=== PATIENT | male | born 1975 | race Caucasian/White ===

== ENCOUNTER 2022-06-09 21:00 | Inpatient (IN) | payer BC ==
[~2022-06-09] VITALS: Ht 180.3 cm; Wt 102.5 kg
[2022-06-09 20:45] VITALS: BP 107/80
--- NOTE | 2022-06-09 22:10 | NUR ---
RECEIVED PT VIA GURNEY FROM [facility]. TRANSFERRED TO BED WITH 2 PT ASSIST. AWAKE, ALERT AND VERBALLY RESPONSIVE. AT BEDSIDE. RIGHT LEG DRESSING INTACT, CLEAN AND DRY. 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 BAILEY ON FRIDAY. SKIN ASSESSMENT PERFORMED. PLACED ICE ON HIS RIGHT LEG. NOTED SWELLING ABOVE THE KNEE. WARM TO TOUCH AND HAS SOME BRUISES AROUND THE SURGICAL AREA. VSS. ROUTINE ADMISSION DONE. ORIENTED PT TO ROOM. CALL LIGHT WITHIN REACH. LEFT BED IN LOWEST POSITION. PLAN OF CARE INITIATED. ALL NEEDS ATTENDED. SAFETY PRECAUTIONS MAINTAINED.
[2022-06-09] MEDS ORDERED: OXYCODONE HCL 5 MG TABLET PO PRN (22:15)
[2022-06-09] MEDS ORDERED: MAGNESIUM HYDROXIDE 30 ML LIQUID UDC PO PRN (22:15)
[2022-06-09] MEDS ORDERED: diphenhydrAMINE 25 MG CAP PO PRN (22:15)
[2022-06-09] MEDS ORDERED: BISACODYL 10 MG SUPP.RECT RC PRN (22:15)
[2022-06-09] MEDS ORDERED: REMEDY ESSENTIAL ZINC PASTE 113 GM TOP PRN (22:15)
[2022-06-09] MEDS: OXYCODONE HCL 5 MG TABLET PO PRN (23:36)
[2022-06-10 04:00] VITALS: BP 124/75
[2022-06-10 07:47] VITALS: BP 109/69
[2022-06-10] MEDS: SENNOSIDES 1 TABLET PO SCH ×2 (08:09→16:59)
[2022-06-10] MEDS: OXYCODONE HCL 5 MG TABLET PO PRN ×7 (08:09→20:16)
[2022-06-10] MEDS: ASPIRIN 325 MG TABLET PO SCH (08:09)
[2022-06-10] MEDS: DOCUSATE SODIUM 100 MG CAPSULE PO SCH ×2 (08:09→20:16)
--- NOTE | 2022-06-10 08:56 | NUR ---
0730-Rec'd patient in bed, awake, A/Ox4, able to communicate his needs and follow directions, no physical or respiratory distress noted at this time. Encouraged to use call light for help when needed. Will monitor and follow up according plan of care. 0812-Patient c/o pain to RT lower extremity/Knee, medicated PRN with Oxyir as ordered by MD, based on pain level needs.
--- NOTE | 2022-06-10 09:41 | NUR ---
0900-Scheduled medication administered as ordered. No ASE noted. Fresh ice water pitcher provided., Patient OOB with therapist, ambulating ad rona in [facility]. therapy fairly.
--- NOTE | 2022-06-10 11:05 | NUR ---
0809-Patient requested pain medication, pain assessment done and patient stated pain level to be at 7/10, upon giving him the two Oxyir 10mg as ordered by MD and based on patient's pain level, patient declined to take two tablets of Oxyir, instead he said he will do just fine with one tablet, which is 5mg only. Patient's swishes and choices were respected. Administered only one table of Oxyir 5mg and the other tablet was returned to [facility] with a witness. By the time the Oxyir 5mg tablet was again rescanned it was already 0812am.
--- NOTE | 2022-06-10 11:53 | NUR ---
Oxyir 5mg tablet returned to the [facility], a receipt was printed and tablet wrapped in the receipt. Spoke to Kevin pharmacist regarding above mention Oxyir issue; informed Eduardo (pharmacist) that now every time I logged into [facility] it gives me a message that partial dose needs waste documentation; made it clear to Eduardo nothing was wasted, "5mg table of Oxyir was returned to the bin attached to the [employer], it was witness as well" Obtained orders from Dr. Gee to discontinue Oxyir 10mg and 15 mg PRN. Per patient's request as he claims, 10mg and 15mg "makes him dizzy" order carried out.
[2022-06-10 13:42] LABS: HEMATOCRIT 35.9 % (36.7-47.1); MEAN CORPUSCULAR HEMOGLOBIN 28.2 uug (23.8-33.4); MEAN CORPUSCULAR VOLUME 85.8 fL (73.0-96.2); PLATELET COUNT (AUTO) 223 K/uL (152-348)
[2022-06-10] MEDS ORDERED: FAMO-132 PO (13:58)
[2022-06-10] MEDS ORDERED: ASPI-612 PO (13:58)
[2022-06-10] MEDS ORDERED: OXYC5TAB3 PO (13:58)
[2022-06-10] MEDS ORDERED: BISA10SU61 RC (13:58)
[2022-06-10] MEDS ORDERED: DOCU100C36 PO (13:58)
[2022-06-10] MEDS ORDERED: OXYC15TA2 PO (13:58)
[2022-06-10] MEDS ORDERED: OXYC10TA49 PO (13:58)
[2022-06-10] MEDS ORDERED: SENN-18 PO (13:58)
--- NOTE | 2022-06-10 14:08 | NUR ---
WOUND CARE CONSULT: PT PRESENTS WITH KNEE DRESSING WHICH IS DRY AND INTACT. DEFER TO ORTHO SURGEON. WILL SEE PRN.
[2022-06-10 14:28] LABS: POTASSIUM 3.5 mmol/L (3.5-5.1)
--- NOTE | 2022-06-10 14:38 | NUR ---
1:00PM-PATIENT WAS SEEN BY Dr. SHI, (PATIENT'S AT BEDSIDE), Dr SHI REMOVED RT KNEE DRESSING AND EXAMINED IT. MD ORDERED CBC, BMP STAT. PEPCID 40MG QD. INSTRUCTED ME TO REWRAP THE RT KNEE WITH LIGHT DRESSING. ORDERS NOTED AND CARRIED OUT. PICTURE OF AFFECTED AREA, RT KNEE TAKEN AND FILE IN THE PATIENT'S CHART.
--- NOTE | 2022-06-10 14:49 | NUR ---
2:39PM-MERRITT RHODES, CAME UPSTAIRS TO INFORMED ME SHE HAD PAGED CHLOE AND LEFT A MESSAGE REGARDING NARCOTIC SITUATION.
--- NOTE | 2022-06-10 15:29 | NUR ---
1:40pm-Lynda SUTHERLAND (PHARMACIST) CAME UP TO THE UNIT, WE BOTH ATTEMPTED TO CORRECT NARCOTIC (OXYIR) DISCREPANCY & UNABLE TO SOLVE IT, PER ENA, "I DO NOT KNOW HOW TO GET RID OF THE MESSAGE PROMPTING" 2:32PM-LEFT A MESSAGE FOR HS, CHLOE TO COME UP TO THE FLOOR AND HELP OUT SOLVE THE ISSUE & AWAITING. 3:00PM-RETAIL DEPARTMENT MANAGER AND CHARGE NURSE ARE INFORMED OF NARCOTIC SITUATION
--- NOTE | 2022-06-10 15:31 | NUR ---
LAB RESULTS FOR CBC/BMP DONE STAT (TODAY)WERE RELAYED TO Dr. SHI, PER NO NEW ORDERS AT THIS TIME AND TO CONTINUE WITH TREATMENT AND MONITORING RT KNEE SURGICAL SITE.
[2022-06-10 16:28] VITALS: BP 131/72
--- NOTE | 2022-06-10 18:51 | NUR ---
PATIENT ABLE TO USE CMP MACHINE TO RT EXTREMITY/KNEE @ 5-35 DEGRES, BRICE. WELL. ICE PACKS APPLIED TO RT KNEE AND MEDICATED PATIENT FOR PAIN PRN AND EFFECTIVE. ALL NEEDS ATTENDED WELL AND MET.
--- NOTE | 2022-06-10 20:00 | NUR ---
Temperature 100.0 at this time. Patient/ refused tylenol at this time stating that she'll give sponge bath later. Will monitor.
[2022-06-10 20:24] VITALS: BP 117/74
--- NOTE | 2022-06-10 21:00 | NUR ---
Rechecked temperature 100.6, encouraged increased oral liquid at this time.
--- NOTE | 2022-06-10 21:40 | NUR ---
Sponge bath given by inside room, tolerated well. Temperature down to 99.4. Ice machine started at this time.
[2022-06-10] MEDS: ACETAMINOPHEN 325 MG TABLET PO PRN (22:41)
[2022-06-11] MEDS: OXYCODONE HCL 5 MG TABLET PO PRN ×4 (02:52→22:10)
[2022-06-11 04:00] VITALS: BP 127/72
[2022-06-11] MEDS: FAMOTIDINE 20 MG TABLET PO SCH (06:36)
[2022-06-11 07:15] LABS: HEMATOCRIT 36.6 % (36.7-47.1); MEAN CORPUSCULAR HEMOGLOBIN 28.5 uug (23.8-33.4); MEAN CORPUSCULAR VOLUME 85.9 fL (73.0-96.2); PLATELET COUNT (AUTO) 237 K/uL (152-348)
[2022-06-11 07:19] LABS: BILIRUBIN,TOTAL 1.2 mg/dL (0.2-1.0); MAGNESIUM 2.4 mg/dL (1.8-2.4); PHOSPHOROUS 4.5 mg/dL (2.5-4.9); POTASSIUM 3.5 mmol/L (3.5-5.1)
[2022-06-11 07:50] VITALS: BP 139/81
[2022-06-11 08:29] LABS: THYROID STIMULATING HORMONE 1.755 mIU/mL (0.358-3.740)
[2022-06-11] MEDS: ASPIRIN 325 MG TABLET PO SCH (08:31)
[2022-06-11] MEDS: SENNOSIDES 1 TABLET PO SCH ×2 (08:31→16:17)
[2022-06-11] MEDS: DOCUSATE SODIUM 100 MG CAPSULE PO SCH ×2 (08:31→20:55)
[2022-06-11 09:15] LABS: *BLOOD, URINE NEGATIVE (NEGATIVE); *CLARITY,URINE CLEAR (CLEAR); *COLOR,URINE YELLOW (YELLOW); *KETONES,URINE NEGATIVE (NEGATIVE); LEUKOCYTE ESTERASE ,URINE NEGATIVE (NEGATIVE); NITRITE, URINE NEGATIVE (NEGATIVE); PH,URINE 5.5 (5.0-8.0); UGLUCOSE NEGATIVE (NEGATIVE)
--- NOTE | 2022-06-11 09:29 | NUR ---
0710-PATIENT IN BED, NO C/O PAIN AT THIS TIME. RT KNEE IN CORRECT ALIGNMENT WITH CLEAN DD IN PLACE. PATIENT WITH NO C/O PAIN AT THIS TIME. FRESH ICE WATER PITCHER PROVIDED. NOTED PATIENT WITH DARK COLOR URINE, DENIES ANY BLADDER DISCOMFORT; SPOKE TO PATIENT'S AND STATED PATIENT WAS HAVING TEMPERATURE LAST NIGHT REQUESTED FOR A CXR, UA. ORDERS OBTAINED FROM PCP COVERING AND CARRIED OUT. 0900-SCHEDULED MEDICATION ADMINISTERED ORDERED; ORAL FLUIDS ENCOURAGED BRICE AND TAKEN WELL.
[2022-06-11 09:30] LABS: *BILIRUBIN,URIN 1+ (NEGATIVE)
[2022-06-11] MEDS: ACETAMINOPHEN 325 MG TABLET PO PRN (12:48)
[2022-06-11 16:02] VITALS: BP 125/70
[2022-06-11] MEDS: LACTULOSE 20 G/30 ML LIQUID UDC PO SCH (16:17)
--- NOTE | 2022-06-11 17:29 | NUR ---
0949-Patient ambulating in the hallway with therapist, patient suddenly became diaphoretic/sweating/pale, patient was assisted to sit in a w/c. VS assessed and as follows: BP142/75, HR108, T99.5, R18, HL=602, oxygen 98%. Patient was assisted back to his room and bed; cooling measures applied, ice water offered and taken well. Notified Dr. Munoz about above patient's condition and gave following orders: CxR and UA, orders carried out. 11:30-CxR and UA results relayed to , also informed Dr. Munoz that patient states he has not had a BM since 06/06/22, MD ordered lactulose 20gm BID x3 days. 12:46-Temperature 100, medicated patient PRN with Tylenol for low grade fever as ordered. MD gave new orders at this time to do blood culture X2, and lactic acid.
[2022-06-11 20:43] VITALS: BP 125/75
[2022-06-12] MEDS: ACETAMINOPHEN 325 MG TABLET PO PRN (04:15)
[2022-06-12 04:29] VITALS: BP 118/62
--- NOTE | 2022-06-12 04:45 | NUR ---
AAOx4 Ambulates with walker with supervision. All needs attended. Patient been spiking temperature on and off. Temp 99.4 at beginning of shift. Fluids encouraged. in with patient at that time. Will monitor patient's temperature. Right knee swollen and reddenned. Dressing changed. Temp 100.2 @ 0400. Tylenol given. Refused ice packs. He says its too cold. Told patient to drink a lot of fluids. Patient compliant. Will monitor patient's temp. Blood cultures pending. Voiding well.
[2022-06-12] MEDS: FAMOTIDINE 20 MG TABLET PO SCH (06:20)
[2022-06-12 07:34] VITALS: BP 121/73
[2022-06-12] MEDS: ASPIRIN 325 MG TABLET PO SCH (09:23)
[2022-06-12] MEDS: LACTULOSE 20 G/30 ML LIQUID UDC PO SCH ×2 (09:23→17:17)
[2022-06-12] MEDS: SENNOSIDES 1 TABLET PO SCH ×2 (09:23→17:17)
[2022-06-12] MEDS: DOCUSATE SODIUM 100 MG CAPSULE PO SCH ×2 (09:23→21:37)
[2022-06-12] MEDS: OXYCODONE HCL 5 MG TABLET PO PRN ×2 (09:26→14:09)
--- NOTE | 2022-06-12 12:47 | NUR ---
INDIVIDUALIZED PLAN OF CARE
--- NOTE | 2022-06-12 13:03 | NUR ---
INTERDISCIPLINARY TEAM CONFERENCE
[2022-06-12 16:00] VITALS: BP 130/73
[2022-06-12] MEDS: GLUCERNA SHAKE 237 ML CAN PO SCH (17:32)
[2022-06-12 20:00] VITALS: BP 129/69
--- NOTE | 2022-06-12 23:00 | NUR ---
1920- The patient is AOx4 Ambulates with walker with supervision. All needs attended. Patient has a dressing on right knee. Fluids encouraged. in the room with patient. The patient has no high temperature. The patient has no IV access. Call light within reach, bed alarm on, two side rails up, wheels locked. The patient has no sob. Will continue to monitor throughout the shift. 2200- Changed right knee dressing. Dressing clean, dry and intact. Will continue to monitor throughout the shift. 0100- The patient request for an extra blanket. Item is given to the patient. The patient has no complains of pain or sob. Will continue to monitor throughout the shift.
[2022-06-13 04:00] VITALS: BP 135/61
[2022-06-13] MEDS: FAMOTIDINE 20 MG TABLET PO SCH (06:34)
[2022-06-13] MEDS: OXYCODONE HCL 5 MG TABLET PO PRN ×3 (07:59→17:28)
[2022-06-13] MEDS: GLUCERNA SHAKE 237 ML CAN PO SCH ×2 (08:00→17:53)
[2022-06-13 08:01] VITALS: BP 120/71
[2022-06-13] MEDS: DOCUSATE SODIUM 100 MG CAPSULE PO SCH ×2 (09:17→21:43)
[2022-06-13] MEDS: LACTULOSE 20 G/30 ML LIQUID UDC PO SCH ×2 (09:17→17:00)
[2022-06-13] MEDS: ASPIRIN 325 MG TABLET PO SCH (09:17)
[2022-06-13] MEDS: SENNOSIDES 1 TABLET PO SCH ×2 (09:17→17:53)
[2022-06-13 15:54] VITALS: BP 132/69
--- NOTE | 2022-06-13 19:16 | NUR ---
RECEIVED REPORT FROM HOWARD ADAM RN. PATIENT IS ALERT & ORIENTED X4, AND SPEAKS [place]. VITAL SIGNS STABLE. PATIENT TOLERATES PO MEDICATIONS AND DIET WELL. PATIENT PARTICIPATES WITH PHYSICAL AND OCCUPATIONAL THERAPY SCHEDULED. PATIENT HAD COMPLAINT OF PAIN. RN PROVIDED MEDICATIONS ORDERED BY MD. PATIENT EXPRESSES RELIEF. RIGHT KNEE DRESSING DRY, CLEAN, & INTACT. RN CONFIRMED WITH PATIENT THAT HE WILL BE GOING TO A DOCTOR'S APPOINTMENT AT 1500. PATIENT CONFIRMS: "YES." RN GAVE REPORT TO EMT [facility] TEAM. PATIENT LEFT AT 1537PM WITH [facility] IN STABLE CONDITION. PATIENT RETURNS AT 1714PM. PATIENT HAD ONE LARGE BOWEL MOVEMENT AND EXPRESSED RELIEF. FALL PRECAUTIONS IN PLACE. ALL NEEDS MET AT THIS TIME. NO ACUTE DISTRESS. ENDORSED CARE TO HOWARD ADAM RN, FOR CONTINUATION OF CARE.
[2022-06-13 20:00] VITALS: BP 117/64
--- NOTE | 2022-06-13 23:00 | NUR ---
1925- The patient is AOx4 Ambulates with walker with supervision. All needs attended. Patient has a dressing on right knee that is clean, dry, and intact. Fluids encouraged. in the room with patient. The patient has no high temperature. The patient has no IV access. Call light within reach, bed alarm on, two side rails up, wheels locked. The patient has no sob or complains of pain. Will continue to monitor throughout the shift. 2100- Dressing of the right knee clean, dry and intact. Will continue to monitor throughout the shift. 0400- The patient request for extra pillows. Items are given to the patient. The patient has no complains of pain or sob. Will continue to monitor throughout the shift.
[2022-06-14 04:00] VITALS: BP 115/56
[2022-06-14] MEDS: FAMOTIDINE 20 MG TABLET PO SCH (06:23)
[2022-06-14 07:59] VITALS: BP 124/68
[2022-06-14] MEDS: ASPIRIN 325 MG TABLET PO SCH (08:54)
[2022-06-14] MEDS: SENNOSIDES 1 TABLET PO SCH ×2 (08:54→18:00)
[2022-06-14] MEDS: OXYCODONE HCL 5 MG TABLET PO PRN (08:55)
[2022-06-14] MEDS: DOCUSATE SODIUM 100 MG CAPSULE PO SCH ×2 (08:55→20:38)
[2022-06-14] MEDS: LACTULOSE 20 G/30 ML LIQUID UDC PO SCH (08:55)
[2022-06-14] MEDS: GLUCERNA SHAKE 237 ML CAN PO SCH ×2 (08:55→18:01)
[2022-06-14 16:24] VITALS: BP 120/63
--- NOTE | 2022-06-14 19:45 | NUR ---
RECEIVED REPORT FROM HOWARD ADAM RN. PATIENT IS ALERT & ORIENTED X4, AND SPEAKS [place]ERI[place]. VITAL SIGNS STABLE. PATIENT TOLERATES PO MEDICATIONS AND DIET WELL. PATIENT PARTICIPATES WITH PHYSICAL AND OCCUPATIONAL THERAPY SCHEDULED. PATIENT HAD COMPLAINT OF PAIN. RN PROVIDED MEDICATIONS ORDERED BY MD. PATIENT EXPRESSES RELIEF. RIGHT KNEE DRESSING DRY, CLEAN, & INTACT. FALL PRECAUTIONS IN PLACE. ALL NEEDS MET AT THIS TIME. NO ACUTE DISTRESS. ENDORSED CARE TO HOWARD ADAM RN, FOR CONTINUATION OF CARE.
[2022-06-14 20:24] VITALS: BP 133/66
--- NOTE | 2022-06-14 23:00 | NUR ---
1920- The patient is AOx4 Ambulates with walker with supervision. All needs attended. Patient has a dressing on right knee that is clean, dry, and intact. Fluids encouraged. The patient has no high temperature. The patient has no IV access. Call light within reach, bed alarm on, two side rails up, wheels locked. The patient has no sob or complains of pain. Will continue to monitor throughout the shift. 2200- Dressing of the right knee clean, dry and intact. Will continue to monitor throughout the shift. The patient is resting and has no sob. Will continue to monitor throughout the shift. 0100- The patient request for extra pillows. Items are given to the patient. The patient has no complains of pain or sob. Will continue to monitor throughout the shift. 0400- The patient is asleep and has no complains of pain or sob. Will continue to monitor throughout the shift.
[2022-06-15] MEDS: OXYCODONE HCL 5 MG TABLET PO PRN ×3 (03:39→21:04)
[2022-06-15 04:38] VITALS: BP 122/61
[2022-06-15] MEDS: FAMOTIDINE 20 MG TABLET PO SCH (06:06)
[2022-06-15 07:57] VITALS: BP 119/64
[2022-06-15] MEDS: ASPIRIN 325 MG TABLET PO SCH (08:47)
[2022-06-15] MEDS: GLUCERNA SHAKE 237 ML CAN PO SCH ×2 (08:47→17:04)
[2022-06-15] MEDS: DOCUSATE SODIUM 100 MG CAPSULE PO SCH ×2 (08:48→21:04)
[2022-06-15] MEDS: SENNOSIDES 1 TABLET PO SCH ×2 (08:48→16:29)
--- NOTE | 2022-06-15 09:48 | NUR ---
0730-Upon shift exchanged routine rounds rec'd patient in bed, patient seems to be asleep, no apparent physical or respiratory distress noted. Patient on room air and justin. well. Patient able to wake up on verbal commands, patient AO/ x4, able to verbalize his needs and follow directions. Patient denies pain at this time, safety measures in place, call light within reach and encouraged to use it every time help is needed with good understanding. 0900-Scheduled medication administered, no ASE noted, no swallowing problems observed. Oral fluids taken well, patient eating his breakfast also, patient able to feed herself with out a problem, denies GI discomfort, no N/V noted., Medicated patient PRN as ordered by MD and based on pain level needs. (RT knee pain)
[2022-06-15 16:02] VITALS: BP 120/72
--- NOTE | 2022-06-15 17:29 | NUR ---
Patient in stable conditions, afebrile during shift. Eating and drinking well. OOB to therapy and actively able to participate in therapy exercises. Right knee surgical site treatment provided as ordered, patricia in place; surgical line intact. No s/s of infection, bleeding noted. Needs attended well during shift. No LEESA from baseline status.
[2022-06-15 20:28] VITALS: BP 113/71
--- NOTE | 2022-06-16 04:30 | NUR ---
Admitted for right knee arthroplasty. Right knee dressing clean dry and intact. Pain meds given as needed, with relief noted.Voiding well. No acute distress noted. Kept comfortable. Siderails up for safety. Rt knee dressing clean dry and intact. Fall precautions maintained. Siderails up for safety.
[2022-06-16 04:33] VITALS: BP 111/67
[2022-06-16] MEDS: FAMOTIDINE 20 MG TABLET PO SCH (06:12)
[2022-06-16] MEDS: OXYCODONE HCL 5 MG TABLET PO PRN ×2 (08:44→16:12)
[2022-06-16] MEDS: GLUCERNA SHAKE 237 ML CAN PO SCH ×2 (08:49→17:16)
[2022-06-16] MEDS: ASPIRIN 325 MG TABLET PO SCH (08:58)
[2022-06-16] MEDS: SENNOSIDES 1 TABLET PO SCH ×2 (08:58→17:22)
[2022-06-16] MEDS: DOCUSATE SODIUM 100 MG CAPSULE PO SCH ×2 (08:58→20:59)
[2022-06-16 16:00] VITALS: BP 137/71
[2022-06-16 20:00] VITALS: BP 118/72
[2022-06-16] MEDS: ACETAMINOPHEN 325 MG TABLET PO PRN (22:03)
[2022-06-17 04:00] VITALS: BP 97/55
[2022-06-17] MEDS: FAMOTIDINE 20 MG TABLET PO SCH (06:32)
[2022-06-17 07:47] VITALS: BP 104/61
--- NOTE | 2022-06-17 07:54 | NUR ---
Patient had a good night, no fever. Patient is very nice and polite with staff. He refused pain med and denied having any strong pain. No changes in patient condition. He is compliant with meds.
[2022-06-17] MEDS: DOCUSATE SODIUM 100 MG CAPSULE PO SCH (09:00)
[2022-06-17] MEDS: SENNOSIDES 1 TABLET PO SCH (09:12)
[2022-06-17] MEDS: ASPIRIN 325 MG TABLET PO SCH (09:13)
[2022-06-17] MEDS: OXYCODONE HCL 5 MG TABLET PO PRN ×2 (09:13→12:18)
[2022-06-17] MEDS: GLUCERNA SHAKE 237 ML CAN PO SCH (09:14)
[2022-06-17 11:37] VITALS: BP 136/58
[2022-06-17 16:34] VITALS: BP 100/49
--- NOTE | 2022-06-17 17:10 | NUR ---
RECEIVED REPORT FROM HOWARD ZIMMERMAN RN. PATIENT IS ALERT & ORIENTED X4, AND SPEAKS [place]O. VITAL SIGNS STABLE. PATIENT TOLERATES PO MEDICATIONS AND DIET WELL. PATIENT PARTICIPATES WITH PHYSICAL AND OCCUPATIONAL THERAPY SCHEDULED. PATIENT HAD COMPLAINT OF PAIN. RN PROVIDED MEDICATIONS ORDERED BY MD. PATIENT EXPRESSES RELIEF. RIGHT KNEE DRESSING CHANGED, DRY, CLEAN, & INTACT. FALL PRECAUTIONS IN PLACE. ALL NEEDS MET AT THIS TIME. NO ACUTE DISTRESS. RN NOTIFIED PATIENT WILL BE DISCHARGE TODAY PATIENT CONFIRMS AND VERBALIZES UNDERSTANDING. CALL LIGHT WITHIN REACH. DISCHARGE INSTRUCTIONS PROVIDED. ALL QUESTIONS ANSWERED. PATIENT VERBALIZED UNDERSTAND. PATIENT BELONGINGS LIST SIGNED. PATIENT LEFT IN STABLE CONDITION WITH PATIENT'S (OMARI).
== END 2022-06-17 17:10 | disposition home health service (06) | DRG 560 ==
PROVIDERS: ADMIT Physical Medicine & Rehabilitation Pain Medicine; ATTEND Physical Medicine & Rehabilitation Pain Medicine
DX: Z47.1 Aftercare following joint replacement surgery (principal); D68.59 Other primary thrombophilia; M17.11 Unilateral primary osteoarthritis, right knee; E66.9 Obesity, unspecified; Z68.31 Body mass index [BMI] 31.0-31.9, adult; E78.5 Hyperlipidemia, unspecified; Z96.651 Presence of right artificial knee joint; Z82.49 Family history of ischemic heart disease and other diseases of the circulatory system; G47.33 Obstructive sleep apnea (adult) (pediatric)
CPT/HCPCS: 36415; 71046; 83605; 83735; 84100; 84443; 85025; 87040; 97535-GO-CO; A4663; A6209